=== PATIENT | female | born 1950 | race Caucasian/White ===

== ENCOUNTER → 2016-11-14 | Outpatient (CLI) | payer BC ==
--- NOTE | 2016-11-14 14:26 | REPMRS ---
Patient History The patient states she had a clinical breast exam in 11/2016. Patient is postmenopausal. Family history of prostate cancer in father. Took hormonal contraceptives for 10 years. Taking unspecified hormones for 18 years. Digital Woman Screen Mammo: November 14, 2016 - Exam #: [id number] Bilateral CC and MLO view(s) were taken. Technologist: Leyda Villeda, Technologist Prior study comparison: November 14, 2015, digital woman screen mammo performed at [facility]. September 27, 2014, digital woman screen mammo performed at [facility]. August 20, 2013, bilateral bilat screen digital mammo, performed at [facility] ([facility]). FINDINGS: The breast tissue is almost entirely fat. There has been no change in the appearance of the mammogram from the prior studies. There is no interval development of dominant mass, architectural distortion, or clustered microcalcification typical of malignancy. ASSESSMENT: BI-RADS/ACR category 1 mammogram. Negative. Recommendation Routine screening mammogram of both breasts in 1 year (for women over age 40). This mammogram was interpreted with the aid of an FDA-approved computer-aided dectection system. Electronically Signed By: Fernando Reece MD 11/14/16 [id number]
== END ==
LOC: M WHC 12:36
PROVIDERS: ATTEND Nurse Practitioner Family
DX: Z12.31 Encounter for screening mammogram for malignant neoplasm of breast (principal); Z78.0 Asymptomatic menopausal state; Z92.0 Personal history of contraception; Z92.29 Personal history of other drug therapy

== ENCOUNTER → 2017-11-17 | Outpatient (CLI) | payer OTHER | LOC: M WHC 13:35 | DX: Z12.31 Encounter for screening mammogram for malignant neoplasm of breast (principal); Z01.419 Encounter for gynecological examination (general) (routine) without abnormal findings (principal); Z78.0 Asymptomatic menopausal state; Z92.0 Personal history of contraception; Z92.29 Personal history of other drug therapy; Z80.42 Family history of malignant neoplasm of prostate | CPT/HCPCS: 77067 ==

== ENCOUNTER → 2018-11-18 | Outpatient (CLI) | payer MEDICARE ==
--- NOTE | 2018-11-18 17:45 | REPMRS ---
Patient History The patient states she had a clinical breast exam in 11/2018. Patient is postmenopausal. Family history of prostate cancer in father. Took hormonal contraceptives for 10 years. Taking unspecified hormones for 20 years. 3D TOMOSYNTHESIS WAS PERFORMED. Digital Woman Screen Mammo: November 18, 2018 - Exam #: [id number] Bilateral CC and MLO view(s) were taken. Technologist: Dena Foote, Technologist Prior study comparison: November 17, 2017, digital woman screen mammo performed at [facility]. November 14, 2016, digital woman screen mammo performed at [facility] [employer] [facility]. FINDINGS: There are scattered fibroglandular densities. There has been no change in the appearance of the mammogram from the prior studies. There is a mild amount of residual fibroglandular tissue which is fairly symmetric. There is no interval development of dominant mass, architectural distortion, or clustered microcalcification suggestive of malignancy. Assessment: BI-RADS/ACR category 1 mammogram. Negative Mammogram. Recommendation Routine screening mammogram in 1 year (for women over age 40). This mammogram was interpreted with the aid of an FDA-approved computer-aided dectection system. Electronically Signed By: Anthony Huff MD 11/18/18 [id number]
--- NOTE | 2018-11-25 10:37 | DEXA ---
AP SPINE L1 - L4 1.225 0.4 2.0 LT FEMUR TOTAL 0.914 -0.7 0.5 LT NECK 0.893 -1.0 0.5 RT FEMUR TOTAL 0.997 -0.1 1.2 RT NECK 0.944 -0.7 0.8 TOTAL BODY TOTAL OTHER COMMENTS: Normal bone densitometry of the spine. Normal bone densitometry of the right hip. There is low bone density of the left hip. The decreased density of the spine does represent a significant change. The decreased density of the left hip does represent a significant change. The decreased density of the right hip does represent a significant change. The density of the spine has increased 8.4% since the initial exam on 10/26/2001. The spine density has decreased 6.3% since the most recent exam on 08/20/2013. The density of the left hip has decreased 9.0% since the initial exam on 10/26/2001. The density of the left hip has decreased 6.3% since the most recent exam on 08/20/2013. The density of the right hip has decreased 8.9% since the initial exam on 10/26/2001. The density of the right hip has decreased 9.9% since the most recent exam on 08/20/2013. FOLLOW-UP: Recommendation for the next bone density exam: 2 years. BO
== END ==
LOC: M WHC 13:40
PROVIDERS: ATTEND Nurse Practitioner Family
DX: Z01.419 Encounter for gynecological examination (general) (routine) without abnormal findings (principal); Z12.31 Encounter for screening mammogram for malignant neoplasm of breast; Z78.0 Asymptomatic menopausal state; Z92.0 Personal history of contraception; Z92.29 Personal history of other drug therapy; N95.9 Unspecified menopausal and perimenopausal disorder
CPT/HCPCS: 77063; 77067; 77080; G0101

== ENCOUNTER → 2020-01-13 | Outpatient (CLI) | payer MEDICARE ==
--- NOTE | 2020-01-13 15:36 | REPMRS ---
Patient History Family history of prostate cancer in father. Took hormonal contraceptives for 10 years. Taking unspecified hormones for 20 years. Digital Woman Screen Mammo: January 13, 2020 - Exam #: [id number] Bilateral CC and MLO view(s) were taken. Technologist: Flavia Berg, Technologist Prior study comparison: November 18, 2018, bilateral digital woman screen mammo performed at [facility]. November 17, 2017, digital woman screen mammo performed at [facility]. November 14, 2016, digital woman screen mammo performed at [facility]. FINDINGS: There are scattered fibroglandular densities. The Volpara volumetric breast density category is:B. There has been no change in the appearance of the mammogram from the prior studies. There is a mild amount of scattered fibroglandular density which is fairly symmetric. There is no interval development of dominant mass, architectural distortion, or grouped microcalcification suggestive of malignancy. 3-D tomosynthesis shows no additional findings. Assessment: BI-RADS/ACR category 1 mammogram. Negative Mammogram. Recommendation Routine screening mammogram of both breasts in 1 year (for women over age 40). This patient's Lifetime Breast Cancer Risk is estimated at 4.3 %. This mammogram was interpreted with the aid of an FDA-approved computer-aided dectection system. Electronically Signed By: Fernando Reece MD 01/13/20 [id number]
== END ==
LOC: M WHC 14:16
PROVIDERS: ATTEND Nurse Practitioner Family
DX: Z01.411 Encounter for gynecological examination (general) (routine) with abnormal findings (principal); Z12.31 Encounter for screening mammogram for malignant neoplasm of breast; Z80.42 Family history of malignant neoplasm of prostate; Z92.0 Personal history of contraception; Z92.29 Personal history of other drug therapy
CPT/HCPCS: 77063; 77067; G0101; G0463

== ENCOUNTER → 2020-02-28 | Outpatient (REF) | payer MEDICARE | LOC: M LAB REF 17:33 | PROVIDERS: ATTEND Physician Assistant | DX: D04.30 Carcinoma in situ of skin of unspecified part of face (principal); D04.62 Carcinoma in situ of skin of left upper limb, including shoulder; L57.0 Actinic keratosis; L57.8 Other skin changes due to chronic exposure to nonionizing radiation ==

== ENCOUNTER → 2020-03-14 | Outpatient (RCR) | payer MEDICARE | LOC: M PT 13:06 | PROVIDERS: ATTEND Nurse Practitioner Family | DX: Z51.89 Encounter for other specified aftercare (principal); N81.10 Cystocele, unspecified ==

== ENCOUNTER → 2020-03-29 | Outpatient (REF) | payer MEDICARE | LOC: M LAB REF 14:14 | PROVIDERS: ATTEND Dermatology | DX: L57.0 Actinic keratosis (principal) ==

== ENCOUNTER 2020-04-11 09:30 | Outpatient (RCR) | payer MEDICARE | END 2020-04-14 | LOC: M PT 09:30 | PROVIDERS: ATTEND Nurse Practitioner Family | DX: N81.10 Cystocele, unspecified (principal) ==

== ENCOUNTER → 2020-08-29 | Outpatient (REF) | payer MEDICARE | LOC: M SFHCPLAZ 16:55 | PROVIDERS: ATTEND Physician Assistant | DX: C44.42 Squamous cell carcinoma of skin of scalp and neck (principal) | CPT/HCPCS: 11102; 17000; 17003; 88305; G0463 ==

== ENCOUNTER → 2020-10-20 | Outpatient (REF) | payer MEDICARE | LOC: M LAB REF 10:01 | PROVIDERS: ATTEND Dermatology | DX: L90.5 Scar conditions and fibrosis of skin (principal) ==

== ENCOUNTER → 2021-01-31 | Outpatient (CLI) | payer MEDICARE | LOC: M WHC 09:07 | PROVIDERS: ATTEND Obstetrics & Gynecology | DX: Z12.31 Encounter for screening mammogram for malignant neoplasm of breast (principal) ==

== ENCOUNTER → 2021-09-12 | Outpatient (REF) | payer MEDICARE ==
[2021-09-12 15:58] LABS: APPEARANCE, URINE CLEAR (CLEAR); BACTERIA, URINE AUTO NEGATIVE (NEGATIVE); BILIRUBIN, URINE AUTO NEGATIVE (NEGATIVE); BLOOD, URINE BLOOD NEGATIVE (NEGATIVE); COLOR, URINE YELLOW (YELLOW); GLUCOSE, URINE (UA) AUTO NEGATIVE (NEGATIVE); KETONE, URINE AUTO NEGATIVE (NEGATIVE); LEUKOCYTE ESTERASE, URINE AUTO NEGATIVE (NEGATIVE); MUCUS, URINE SMALL (NEGATIVE); NITRITE, URINE AUTO NEGATIVE (NEGATIVE); PROTEIN, URINE AUTO NEGATIVE (NEGATIVE); RBC, URINE AUTO 0 /HPF (0-3); SQUAMOUS EPITHELIAL CELL UR AU 0 /HPF (0-6); UROBILINOGEN, URINE AUTO 0.2 mg/dL (0.0-2.0); WBC, URINE AUTO 0 /HPF (0-3)
== END ==
LOC: M SMT 15:01
PROVIDERS: ATTEND Physician Assistant
DX: N39.3 Stress incontinence (female) (male) (principal)
CPT/HCPCS: 51798; 81001; 87086; G0463

== ENCOUNTER → 2022-02-06 | Outpatient (REF) | payer MEDICARE ==
[2022-02-06 17:35] LABS: APPEARANCE, URINE CLOUDY (CLEAR); BACTERIA, URINE AUTO 2+ (NEGATIVE); BILIRUBIN, URINE AUTO NEGATIVE (NEGATIVE); BLOOD, URINE BLOOD NEGATIVE (NEGATIVE); COLOR, URINE YELLOW (YELLOW); GLUCOSE, URINE (UA) AUTO NEGATIVE (NEGATIVE); KETONE, URINE AUTO NEGATIVE (NEGATIVE); LEUKOCYTE ESTERASE, URINE AUTO 3+ (NEGATIVE); NITRITE, URINE AUTO NEGATIVE (NEGATIVE); PROTEIN, URINE AUTO 1+ mg/dL (NEGATIVE); RBC, URINE AUTO 5 /HPF (0-3); SPECIFIC GRAVITY URINE AUTO 1.011 (1.002-1.035); SQUAMOUS EPITHELIAL CELL UR AU 0 /HPF (0-6); UROBILINOGEN, URINE AUTO 0.2 mg/dL (0.0-2.0); WBC, URINE AUTO TNTC /HPF (0-3)
== END ==
LOC: M PLALAB 16:07
PROVIDERS: ATTEND Advanced Practice Midwife
DX: R30.0 Dysuria (principal)

== ENCOUNTER → 2023-03-13 | Day surgery (SDC) | payer MEDICARE ==
[~2023-03-13] VITALS: Ht 154.9 cm; Wt 62.7 kg
[~2023-03-13] MED LIST: CEPH250T PO; CEPH500C PO; D3 H400T PO; ESTR1TAB PO; FAMO1TAB11 PO; FERR32TA PO; HYDR-3713 PO; HYDR-3910 PO; HYDR12CA PO; LEVO25TA5 PO; LIDOCAINE 1% SDV 30ML VIAL As Ordered ONE; LR 1,000 ML IV SCH; MULT-82 PO; OMEGCAP4 PO; OMEP40CA4 PO; PRAV40TA2 PO; SCOPOLAMINE 1MG TRANSDERMAL PATCH TOP ONE; VERA120T71 PO; VESI10TA2 PO; [UNRECOGNIZED DRUG - OTHER] PO; ceFAZolin 1GM VIAL As Ordered ONE; ceFAZolin SOD 2 GM in IV 1 EA IV ONE; fentaNYL 100 MCG/2 ML INJECTION As Ordered ONE; glucocil PO; propofoL 200 MG/20 ML VIAL As Ordered ONE
[2023-03-13 16:20] VITALS: BP 170/76; TEMP 97; O2SAT 99
== END | disposition home or self-care (01) ==
LOC: M SDC 11:41
PROVIDERS: ATTEND Urology
DX: N32.81 Overactive bladder (principal); R39.15 Urgency of urination; R32 Unspecified urinary incontinence; I12.9 Hypertensive chronic kidney disease with stage 1 through stage 4 chronic kidney disease, or unspecified chronic kidney disease; E78.00 Pure hypercholesterolemia, unspecified; E03.9 Hypothyroidism, unspecified; R12 Heartburn; N18.30 Chronic kidney disease, stage 3 unspecified; Z88.2 Allergy status to sulfonamides; Z91.040 Latex allergy status; Z91.048 Other nonmedicinal substance allergy status; Z79.899 Other long term (current) drug therapy; Z79.890 Hormone replacement therapy
CPT/HCPCS: 64581; 64590; 76000; C1778; C1787; C1897; J0690; J3010

== ENCOUNTER → 2023-03-17 | Outpatient (REF) | payer MEDICARE ==
[~2023-03-17] MED LIST changes: -LIDOCAINE 1% SDV 30ML VIAL As Ordered ONE; -LR 1,000 ML IV SCH; -SCOPOLAMINE 1MG TRANSDERMAL PATCH TOP ONE; -ceFAZolin 1GM VIAL As Ordered ONE; -ceFAZolin SOD 2 GM in IV 1 EA IV ONE; -fentaNYL 100 MCG/2 ML INJECTION As Ordered ONE; -propofoL 200 MG/20 ML VIAL As Ordered ONE
== END ==
LOC: M SFHCDERM 17:43
PROVIDERS: ATTEND Physician Assistant
DX: C44.329 Squamous cell carcinoma of skin of other parts of face (principal)

== ENCOUNTER 2024-09-20 06:37 | Day surgery (SDC) | payer MEDICARE, OTHER ==
[~2024-09-20] VITALS: Ht 154.9 cm; Wt 68.9 kg
[~2024-09-20 06:37] MED LIST changes: +ACET-897 PO; +AMLO1TAB24 PO; +BAYE81TA10 PO; +BIOT1TAB PO; +COQ150CH PO; +ESTR2TAB3 PO; +EYECAP2 PO; +GLIM1TAB84 PO; -HYDR-3910 PO; +HYDR25TA87 PO; +LEVO50TA5 PO; +OMEP40CA5 PO; +SHARK CARTILAGE PA; +SHARPOW3 XX; +SOLI10TA PO; +VITA100017 PO
[2024-09-20] MEDS ORDERED: NS (Normal Saline) 0.9% 1,000 ML IV SCH (06:50)
[2024-09-20] MEDS: ceFAZolin 1GM VIAL As Ordered ONE (07:22)
[2024-09-20] MEDS ORDERED: LIDOCAINE 2% 100MG/5ML SDV (FOR ANES.) As Ordered ONE (08:15)
[2024-09-20] MEDS ORDERED: propofoL 200 MG/20 ML VIAL As Ordered ONE (08:15)
[2024-09-20] MEDS ORDERED: ONDANSETRON 4MG 2ML VIAL As Ordered ONE (08:15)
[2024-09-20] MEDS ORDERED: dexmedeTOMIDine (4MCG/ML)200MCG/50ML BTL (PRECEDEX) As Ordered ONE (08:15)
[2024-09-20] MEDS ORDERED: MIDAZOLAM INJ 2MG/2ML VIAL As Ordered ONE (08:16)
[2024-09-20] MEDS ORDERED: fentaNYL 100 MCG/2 ML INJECTION As Ordered ONE (08:16)
[2024-09-20] MEDS: ceFAZolin SOD 2 GM in IV 1 EA IV ONE (08:33)
[2024-09-20] MEDS ORDERED: ACETAMINOPHEN 1000MG/100ML IV BAG As Ordered ONE (08:54)
[2024-09-20] MEDS: LIDOCAINE 1% SDV 30ML VIAL As Ordered ONE (09:00)
[2024-09-20] MEDS ORDERED: ePHEDrine SULFATE 25 MG/5 ML(5MG/ML) SYRINGE As Ordered ONE (09:08)
[2024-09-20 11:35] VITALS: BP 156/67; TEMP 98.7; O2SAT 97
== END 2024-09-20 11:55 | disposition home or self-care (01) ==
LOC: M SDC 06:37
PROVIDERS: ATTEND Urology
DX: T85.111A Breakdown (mechanical) of implanted electronic neurostimulator of peripheral nerve electrode (lead), initial encounter (principal); T85.193A Other mechanical complication of implanted electronic neurostimulator, generator, initial encounter; Y75.2 Prosthetic and other implants, materials and neurological devices associated with adverse incidents; N32.81 Overactive bladder; E11.22 Type 2 diabetes mellitus with diabetic chronic kidney disease; N18.30 Chronic kidney disease, stage 3 unspecified; Z91.040 Latex allergy status; Z88.2 Allergy status to sulfonamides; Z91.048 Other nonmedicinal substance allergy status; Z79.899 Other long term (current) drug therapy
CPT/HCPCS: 64561; 64585; 64595; 76000; C1787; C1897; J0131; J0690; J2250; J2405; J3010

== ENCOUNTER → 2024-10-07 | Outpatient (CLI) | payer MEDICARE | LOC: M RAD 13:21 | PROVIDERS: ATTEND Otolaryngology | DX: R13.19 Other dysphagia (principal); E04.1 Nontoxic single thyroid nodule ==